=== PATIENT | male | born 1960 | race Native Hawaiian/Other Pacific Islander ===

== ENCOUNTER → 2016-12-19 07:38 | Outpatient (CLI) | payer OTHER | END | disposition home or self-care (01) | LOC: AMB 07:38 | DX: Z04.1 Encounter for examination and observation following transport accident (principal) ==

== ENCOUNTER 2018-11-17 17:41 | Emergency (ER) | payer OTHER ==
[~2018-11-17] VITALS: Ht 177.8 cm; Wt 75.8 kg
[2018-11-17 17:45] VITALS: TEMP 97.8
[2018-11-17 18:03] LABS: PLATELET COUNT 249 K/uL (142-355)
[2018-11-17 18:12] LABS: POTASSIUM 3.9 mmol/L (3.6-5.2); SODIUM 142 mmol/L (136-145)
[2018-11-17 20:37] VITALS: BP 116/74
== END 2018-11-17 20:41 | disposition home or self-care (01) ==
LOC: ED 17:41
PROVIDERS: Emergency Medicine
DX: R07.89 Other chest pain (principal)
CPT/HCPCS: 36415; 80053; 80307; 82550; 82553; 84484; 85027; 93005; 96374; 99284; J2270

== ENCOUNTER 2019-04-16 18:34 | Emergency (ER) | payer OTHER ==
[~2019-04-16] VITALS: Ht 177.8 cm; Wt 75.8 kg
[2019-04-16 18:44] VITALS: BP 143/90; TEMP 98.8
== END 2019-04-16 19:28 | disposition home or self-care (01) ==
LOC: ED 18:34
DX: T63.301A Toxic effect of unspecified spider venom, accidental (unintentional), initial encounter (principal); L08.9 Local infection of the skin and subcutaneous tissue, unspecified
CPT/HCPCS: 87070; 87077; 87185; 87186; 87205; 99282; 99283

== ENCOUNTER 2019-11-18 18:29 | Emergency (ER) | payer OTHER ==
[~2019-11-18] VITALS: Ht 177.8 cm; Wt 78.0 kg
[2019-11-18 18:48] VITALS: BP 133/81; TEMP 98.2
== END 2019-11-18 21:15 | disposition home or self-care (01) ==
LOC: ED 18:29
PROC: 0HQEXZZ Repair Left Lower Arm Skin, External Approach (ICD-10-PCS; principal; 2019-11-18)
DX: S51.812A Laceration without foreign body of left forearm, initial encounter (principal); B86 Scabies; W40.9XXA Explosion of unspecified explosive materials, initial encounter; Y92.89 Other specified places as the place of occurrence of the external cause
CPT/HCPCS: 90471; 90715; 99283

== ENCOUNTER 2022-01-12 20:13 | Emergency (ER) | payer OTHER ==
[~2022-01-12] VITALS: Ht 177.8 cm; Wt 78.0 kg
[2022-01-12 22:20] VITALS: BP 148/88; TEMP 98.7
== END 2022-01-12 22:26 | disposition home or self-care (01) ==
LOC: ED 20:13
PROC: 0HQEXZZ Repair Left Lower Arm Skin, External Approach (ICD-10-PCS; principal; 2022-01-12)
DX: S61.512A Laceration without foreign body of left wrist, initial encounter (principal); W22.8XXA Striking against or struck by other objects, initial encounter; Y92.89 Other specified places as the place of occurrence of the external cause
CPT/HCPCS: 99283; J2001

== ENCOUNTER 2022-01-17 19:26 | Emergency (ER) | payer OTHER ==
[~2022-01-17] VITALS: Ht 177.8 cm; Wt 97.5 kg
[2022-01-17 19:54] VITALS: BP 149/89; TEMP 99.2
== END 2022-01-17 19:54 | disposition home or self-care (01) ==
LOC: ED 19:26
DX: Z53.21 Procedure and treatment not carried out due to patient leaving prior to being seen by health care provider (principal)
CPT/HCPCS: 99281

== ENCOUNTER 2022-02-03 08:46 | Emergency (ER) | payer OTHER ==
[~2022-02-03] VITALS: Ht 177.8 cm; Wt 97.5 kg
[2022-02-03 08:50] VITALS: TEMP 98.5
[2022-02-03 09:04] LABS: PLATELET COUNT 312 K/uL (142-355)
[2022-02-03 09:44] LABS: PARTIAL THROMBOPLASTIN TIME 26.6 SECONDS (24.5-33.6)
[2022-02-03 13:44] VITALS: BP 166/86
== END 2022-02-03 13:45 | disposition home or self-care (01) ==
LOC: ED 08:46
PROVIDERS: Emergency Medicine
DX: R07.89 Other chest pain (principal)
CPT/HCPCS: 80053; 82550; 84484; 85027; 85610; 85730; 93005; 96360; 96375; 99284; J2270; J2405; J3490; Q9963

== ENCOUNTER 2022-02-18 15:26 | Outpatient (CLI) | payer OTHER | END 2022-02-18 19:17 | disposition home or self-care (01) | LOC: RAD 15:26 | PROVIDERS: ATTEND Family Medicine | DX: M25.562 Pain in left knee (principal) ==